=== PATIENT | male | born 1985 | race Two or more races ===

== ENCOUNTER 2023-11-29 05:10 | Emergency (ER) | payer SELFPAY ==
[~2023-11-29] VITALS: Ht 162.6 cm; Wt 92.3 kg
[2023-11-29 05:26] VITALS: BP 137/90; PULSE 83; RESP 16; TEMP 99.5; O2SAT 99
== END 2023-11-29 10:46 | disposition left against medical advice (07) ==
LOC: ER 05:11
DX: K08.89 Other specified disorders of teeth and supporting structures (principal); Z53.21 Procedure and treatment not carried out due to patient leaving prior to being seen by health care provider
CPT/HCPCS: 99281

== ENCOUNTER 2024-06-26 10:45 | Emergency (ER) | payer OTHER ==
[~2024-06-26] VITALS: Ht 162.6 cm; Wt 86.4 kg
[2024-06-26 11:22] VITALS: TEMP 96.6
[2024-06-26 13:51] VITALS: BP 120/84; PULSE 86; RESP 16; O2SAT 100
== END 2024-06-26 13:51 | disposition home or self-care (01) ==
LOC: ER 10:46
DX: R42 Dizziness and giddiness (principal); Z20.822 Contact with and (suspected) exposure to COVID-19; E11.9 Type 2 diabetes mellitus without complications; R51.9 Headache, unspecified
CPT/HCPCS: 36415; 87811; 99283

== ENCOUNTER 2024-11-07 19:30 | Emergency (ER) | payer OTHER ==
[~2024-11-07] VITALS: Ht 162.6 cm; Wt 90.1 kg
[2024-11-07] MEDS: ketorolac trometh 15mg/ml vial 15 MG/ML ML IV ONE (21:02)
[2024-11-07 21:12] LABS: BASOPHILS % (AUTO) 0.3 % (0-1); EOSINOPHILS % (AUTO) 0.4 % (0-6); HEMATOCRIT 47.9 % (42.0-52.0); HEMOGLOBIN 16.2 g/dl (14.0-17.9); LYMPHOCYTES # (AUTO) 1.6 X10'3 (1.1-4.8); LYMPHOCYTES % (AUTO) 16.1 % (21-51); MEAN CORPUSCULAR HEMOGLOBIN 28.8 PG (27.0-31.0); MEAN CORPUSCULAR HGB CONC 33.9 g/dL (33.0-36.5); MEAN PLATELET VOLUME 7.9 FL (7.4-10.4); MONOCYTES # (AUTO) 0.8 X10'3 (0-0.9); MONOCYTES % (AUTO) 7.6 % (2-12); NEUTROPHILS # (AUTO) 7.6 X10'3 (1.8-7.7); NEUTROPHILS % (AUTO) 75.6 % (42-75); PLATELET COUNT 256 X10'3 (140-440); RED BLOOD COUNT 5.64 X10'6 (4.70-6.10); RED CELL DISTRIBUTION WIDTH 13.5 % (11.5-14.5); WHITE BLOOD COUNT 10.1 X10'3 (4.5-11.0)
[2024-11-07] MEDS ORDERED: VANCOMYCIN 1,500MG inj. 1,500 MG in normal saline 500ml IV soln 300 ML IV SCH (21:25)
[2024-11-07 21:33] LABS: ALANINE AMINOTRANSFERASE 58 U/L (12-78); ALBUMIN 3.5 G/DL (3.4-5.0); ALBUMIN/GLOBULIN RATIO 0.7 (1.1-1.5); ALKALINE PHOSPHATASE 209 IU/L (46-116); ANION GAP 7 (8-16); ASPARTATE AMINO TRANSFERASE 17 U/L (10-37); BILIRUBIN,TOTAL 0.4 MG/DL (0.1-1.0); BLOOD UREA NITROGEN 11 MG/DL (7-18); BUN/CREATININE RATIO 10.8 (10.0-20.0); C-REACTIVE PROTEIN 6.97 MG/DL (0.0-0.5); CALCIUM 9.3 MG/DL (8.5-10.1); CHLORIDE 98 MMOL/L (99-107); CREATININE 1.02 MG/DL (0.60-1.10); GLUCOSE 337 MG/DL (70-104); POTASSIUM 3.9 MMOL/L (3.5-5.1); SODIUM 135 MMOL/L (135-145); TOTAL CARBON DIOXIDE 30.5 MMOL/L (24-32); TOTAL PROTEIN 8.5 G/DL (6.4-8.2); eCRCL 81 ML/MIN; eGFR 81 ML/MIN
[2024-11-07 21:51] VITALS: TEMP 98.6
[2024-11-07] MEDS ORDERED: DOXY100C43 PO (22:41)
[2024-11-07] MEDS: VANCOMYCIN/H2O 1.5g/300mL PB 300 ML IV ONE (22:54)
[2024-11-08 00:14] VITALS: BP 106/72; PULSE 104; RESP 18; O2SAT 99
== END 2024-11-08 01:20 | disposition home or self-care (01) ==
LOC: ER 19:30
DX: L03.115 Cellulitis of right lower limb (principal); E11.9 Type 2 diabetes mellitus without complications
CPT/HCPCS: 36415; 73562; 80053; 85025; 86140; 96365; 96366; 96375; 99285; J1885; J3372